=== PATIENT | male | born 1950 | race African-American/Black ===

== ENCOUNTER 2016-08-09 20:10 | Emergency (ER) | payer MEDICARE, MEDICAID ==
[~2016-08-09] VITALS: Ht 187.9 cm; Wt 73.9 kg
[~2016-08-09 20:10] MED LIST: AMOXIL500 MG PO; BACTRIM DS 8001 TA1 PO; CIPRO500 MG PO; DAILY VITE1 TA2 PO; KEFLEX500 MG PO; MIRALAX17 GM/DOSE PO; MULTI VITAMINS1 TAB PO; POLYETHYLE17 GM/Dose PO; PRILOSEC40 MG PO; REGLAN5 MG PO; THORAZINE25 MG PO
[2016-08-09 21:08] LABS: HEMATOCRIT 44.3 % (42.0-52.0); HEMOGLOBIN 14.9 g/dl (14.0-18.0); MEAN CELL VOLUME 87.4 fl (80.0-94.0); MEAN CORPUSCULAR HGB 29.4 pg (27.0-31.0); MEAN CORPUSCULAR HGB CONC 33.6 g/dl (33.0-37.0); MEAN PLATELET VOLUME 10.7 fl (9.6-12.3); PLATELET COUNT AUTOMATED 184 10*3/uL (130-400); RED BLOOD COUNT 5.07 10*6/uL (4.50-5.90); WHITE BLOOD COUNT 6.6 10*3/uL (4.8-10.8)
[2016-08-09 21:23] LABS: ALBUMIN 3.5 gm/dl (3.1-4.5); ALKALINE PHOSPHATASE 70 U/L (45-117); BILIRUBIN, TOTAL 0.6 mg/dl (0.2-1.0); BUN 16 mg/dl (7-24); CARBON DIOXIDE 25 mmol/L (21-32); CHLORIDE 106 mmol/L (98-107); EST GLOM FILT AFRICAN AMERICAN > 60 ml/min; GLUCOSE 85 mg/dL (65-99); POTASSIUM 3.7 mmol/L (3.5-5.1); SGOT/AST 24 IU/L (3-35); SGPT/ALT 39 U/L (12-78); SODIUM 141 mmol/L (136-145); TOTAL PROTEIN 7.8 gm/dL (6.4-8.2)
[2016-08-09 21:37] LABS: BASOPHIL # 0.1 10*3/uL (0-0.1); BASOPHILS 1 % (0-1); EOSINOPHIL # 0.1 10*3/uL (0-0.4); EOSINOPHILS 1 % (1-4); MONOCYTE # 1.2 10*3/uL (0.1-1.0); NEUTROPHIL # 4.3 10*3/uL (2.3-7.9); NEUTROPHILS 65 % (47-73); PLATELET SUFFICIENCY NORMAL (NORMAL); STOMATOCYTE FEW; TOTAL CELLS COUNTED 100 #CELLS
[2016-08-09 22:40] LABS: BILIRUBIN NEGATIVE (NEGATIVE); BLOOD 2+ (NEGATIVE); CLARITY SL CLOUDY (CLEAR); COLOR YELLOW (YELLOW); GLUCOSE NEGATIVE (NEGATIVE); KETONE NEGATIVE (NEGATIVE); LEUKO ESTERASE TRACE (NEGATIVE); NITRITE NEGATIVE (NEGATIVE); PROTEIN TRACE (NEGATIVE); SPECIFIC GRAVITY 1.025 (1.005-1.030)
[2016-08-09 22:46] LABS: BACTERIA 2+; URINE REFLEX COMMENT YES (NO)
[2016-08-09] MEDS ORDERED: CIPRO500 MG PO (22:50)
== END 2016-08-09 23:42 | disposition home or self-care (01) ==
LOC: ED 20:10
PROVIDERS: Physician Assistant
DX: N34.2 Other urethritis (principal); Z98.890 Other specified postprocedural states; Z79.899 Other long term (current) drug therapy

== ENCOUNTER 2017-02-19 09:12 | Inpatient (IN) | payer MEDICARE, MEDICAID ==
[~2017-02-19] VITALS: Ht 185.4 cm; Wt 74.4 kg
--- NOTE | ~2017-02-19 | PR ---
[place], [place] PROGRESS NOTE NAME: ROSALBA MYRICK UNIT #: [id number] ROOM: 402 DOCTOR: NILO HAMILTONAUGUST BIRTHDATE: [birth year] DOS: 02/22/2017 SUBJECTIVE: The patient is a 67-year-old -Ecu[place] male who is being followed for what appears to be bilateral pyelonephritis. He has enlarged prostate on CT of the abdomen and pelvis as well as changes consistent with bilateral pyelonephritis. His urinalysis has shown blood, leukocyte esterase and wbc's 51 to 100 per high powered field, which is consistent with significant pyuria. He is currently on empiric Zosyn. His original presenting urine culture on February 19 was contaminant, had multiple species. Blood cultures have been negative. Urine culture repeat on is sterile. He is alert, responsive, tolerating the antibiotics. Denies nausea, vomiting or diarrhea. Denies any pain. No cough or shortness of breath. He has been afebrile. CURRENT MEDICATIONS: Include K-Phos, Flomax, Zosyn, vitamin D, Lovenox, [place], Protonix, Zofran, milk of mag, Dulcolax, [place] and Tylenol. LABORATORY DATA: Show WBC is 5.0, platelets 210, BUN 8, creatinine 0.8. LFTs within normal limits. Cultures as reviewed above. PHYSICAL EXAMINATION: VITAL SIGNS: Shoe temperature 98.3, pulse 63, respirations 18, BP 120/61. GENERAL: A 67-year-old -Ecu[place] male, in no acute distress. HEAD, EYES, EARS, NOSE AND THROAT: Normocephalic. LUNGS: Clear to auscultation bilaterally. Respirations even and unlabored. HEART: Regular rhythm. No murmur appreciated. ABDOMEN: Soft, nontender. No CVA tenderness. EXTREMITIES: No edema. He does have significant resting tremor. SKIN: Warm, dry, free of rashes. ASSESSMENT: Presumed bilateral pyelonephritis. PLAN: Continue the empiric Zosyn and fortunately repeat urine culture is negative and the original had several species growth in it. AUGUST ALFONSO CORCORAN [place], [place] PROGRESS NOTE NAME: ROSALBA MYRICK Jayy UNIT #: [id number] ROOM: 402 DOCTOR: NILO HAMILTON,AUGUST BIRTHDATE: [birth year] JACKY MANCILLA MD CM:SADI [id number] AUGUST NILO HAMILTON 02/24/17 1300 interface
--- NOTE | ~2017-02-19 | PR ---
[place], [place] PROGRESS NOTE NAME: ROSALBA MYRICK UNIT #: [id number] ROOM: 402 DOCTOR: CHARO BRUNO,JACKY Medel BIRTHDATE: [birth year] DOS: 02/22/2017 ADDENDUM I agree with the above plans as described and follow the patient up clinically and adjust accordingly. JACKY MANCILLA MD CM:PNTRANS [id number] JACKY MANCILLA MD 02/24/17 1321 interface
[2017-02-19 09:21] VITALS: BP 120/92
[2017-02-19 10:33] LABS: BILIRUBIN NEGATIVE (NEGATIVE); BLOOD 3+ (NEGATIVE); CLARITY SL CLOUDY (CLEAR); COLOR YELLOW (YELLOW); GLUCOSE NEGATIVE (NEGATIVE); KETONE NEGATIVE (NEGATIVE); LEUKO ESTERASE 3+ (NEGATIVE); NITRITE NEGATIVE (NEGATIVE)
[2017-02-19 10:48] LABS: BACTERIA TRACE; WBC 51-100 wbc/hpf (0-5)
[2017-02-19 11:11] LABS: HEMATOCRIT 41.1 % (42.0-52.0); HEMOGLOBIN 13.7 g/dl (14.0-18.0); MEAN CELL VOLUME 88.8 fl (80.0-94.0); MEAN CORPUSCULAR HGB 29.6 pg (27.0-31.0); MEAN CORPUSCULAR HGB CONC 33.3 g/dl (33.0-37.0); MEAN PLATELET VOLUME 10.3 fl (9.6-12.3); PLATELET COUNT AUTOMATED 175 10*3/uL (130-400); RED BLOOD COUNT 4.63 10*6/uL (4.50-5.90); RED CELL DISTRI WIDTH 13.9 % (0-14.5); WHITE BLOOD COUNT 19.6 10*3/uL (4.8-10.8)
[2017-02-19 11:25] LABS: ALBUMIN 2.9 gm/dl (3.1-4.5); ALKALINE PHOSPHATASE 75 U/L (45-117); BUN 21 mg/dl (7-24); CHLORIDE 108 mmol/L (98-107); CREATININE 0.98 mg/dL (0.70-1.30); POTASSIUM 3.6 mmol/L (3.5-5.1); SGOT/AST 30 IU/L (3-35); SGPT/ALT 43 U/L (12-78); SODIUM 143 mmol/L (136-145)
[2017-02-19 11:30] LABS: PLATELET SUFFICIENCY NORMAL (NORMAL); TOTAL CELLS COUNTED 100 #CELLS
[2017-02-19 11:49] VITALS: BP 145/83
[2017-02-19 12:15] VITALS: BP 124/73
--- NOTE | 2017-02-19 12:15 | NUR ---
A 67, admitted to , under the services of RANDOLPH Hernandez DO with a diagnosis of UTI. Chief complaint is UTI. Patient arrived via stretcher from ER. Monitor applied. Initial assessment completed. Vital signs taken and recorded. RANDOLPH HERNANDEZ DO notified of admission to the unit. Orders received. See assessment for past medical history, medications and allergies. Patient and/or family oriented to unit. [facility] visitation policy reviewed. Clothing/patient valuable form completed. PHIL ARIAS
--- NOTE | 2017-02-19 15:00 | NUR ---
PT RESTING IN BED. NO DISTRESS NOTED. NO VOICED C/O, WILL MONITOR CALL LIGHT WITHIN REACH
[2017-02-19 16:00] VITALS: BP 124/75
--- NOTE | 2017-02-19 17:30 | NUR ---
PT MEDICATED WITH TYLENOL FOR C/O LEG PAIN. WILL MONITOR. CALL LIGHT WITHIN REACH
[2017-02-19 20:00] VITALS: BP 112/68
--- NOTE | 2017-02-19 20:09 | NUR ---
PT REQUESTED MEDICATION FOR PAIN OF THE RIGHT KNEE. PAIN WAS RATED AT 10 OUT OF 10. BECAUSE THE PT RECEIEVED PAIN MEDICATOIN AT 1728, IT WAS TOO CLOSE FOR THE NEXT DOSE. AN ICE BAG WAS OFFERED AND APPLIED.
--- NOTE | 2017-02-19 20:43 | NUR ---
ICE INEFFECTIVE FOR PAIN. PT STILL RATING PAIN IN THE RIGHT KNEE 10 OUT OF 10. TYLENOL WAS GIVEN.
--- NOTE | 2017-02-19 21:32 | NUR ---
PAIN MEDICATION EFFECTIVE. PT RATES PAIN AT 4 OUT OF 10.
[2017-02-20] VITALS: BP 121/73
--- NOTE | 2017-02-20 01:06 | NUR ---
24 HR chart check completed.
--- NOTE | 2017-02-20 06:06 | NUR ---
PT REQUESTED MEDICATION FOR RIGHT KNEE PAIN. PT RATED PAIN 9 OUT OF 10. TYLENOL WAS GIVEN.
[2017-02-20 07:49] LABS: BASO % 0.1 % (0.0-1.0); EOS # 0.1 10*3/uL (0.0-0.4); HEMATOCRIT 40.3 % (42.0-52.0); HEMOGLOBIN 13.6 g/dl (14.0-18.0); LYMPH # 0.8 10*3/uL (1.3-4.4); LYMPH % 8.7 % (27.0-41.0); MEAN CELL VOLUME 89.2 fl (80.0-94.0); MEAN CORPUSCULAR HGB 30.1 pg (27.0-31.0); MEAN CORPUSCULAR HGB CONC 33.7 g/dl (33.0-37.0); MEAN PLATELET VOLUME 10.7 fl (9.6-12.3); NEUT # 7.1 10*3/uL (2.3-7.9); NEUT % 78.9 % (47.0-73.0); PLATELET COUNT AUTOMATED 164 10*3/uL (130-400); RED BLOOD COUNT 4.52 10*6/uL (4.50-5.90); RED CELL DISTRI WIDTH 14.1 % (0-14.5); WHITE BLOOD COUNT 9.1 10*3/uL (4.8-10.8)
[2017-02-20 08:00] VITALS: BP 131/86
--- NOTE | 2017-02-20 08:13 | NUR ---
QUALITY CONTROL MANAGER VS. LIVES WITH GENEVA IN 1 STORY HOME. SPOKE WITH GENEVA RAJPUT, AND SHE HAS NO NEEDS AT HOME.
--- NOTE | 2017-02-20 08:13 | NUR ---
PT RESTING IN BED. NO DISTRESS NOTED. WILL MONITOR . CALL LIGHT WITHIN REACH
[2017-02-20 08:31] LABS: ALBUMIN 2.9 gm/dl (3.1-4.5); ALKALINE PHOSPHATASE 74 U/L (45-117); BUN 12 mg/dl (7-24); CHLORIDE 107 mmol/L (98-107); CHOLESTEROL 126 mg/dL (<200); CREATININE 0.81 mg/dL (0.70-1.30); FREE T4 1.09 ng/dl (0.76-1.46); HDL CHOLESTEROL 29 mg/dl (40-60); LDL CHOLESTEROL 72 mg/dL (9-159); PHOSPHOROUS 1.5 mg/dL (2.5-4.9); POTASSIUM 3.7 mmol/L (3.5-5.1); SGOT/AST 26 IU/L (3-35); SGPT/ALT 41 U/L (12-78); SODIUM 139 mmol/L (136-145); TOTAL PROTEIN 7.2 gm/dL (6.4-8.2); TRIGLYCERIDES 125 mg/dl (<150); VLDL CHOLESTEROL 25 mg/dL (6-40)
[2017-02-20 08:41] LABS: VITAMIN D, 25-HYDROXY 29.4 ng/mL (30-100)
[2017-02-20 12:00] VITALS: BP 132/71
--- NOTE | 2017-02-20 13:45 | NUR ---
DR GARCIA ANSWERING SERVICE NOTIFIED OF CONSULT
[2017-02-20 16:00] VITALS: BP 129/61
--- NOTE | 2017-02-20 16:58 | NUR ---
pt sitting up in chair, no distress noted. no voiced c/o, will monitor
[2017-02-20 17:08] LABS: BILIRUBIN NEGATIVE (NEGATIVE); BLOOD 3+ (NEGATIVE); CLARITY SL CLOUDY (CLEAR); COLOR YELLOW (YELLOW); GLUCOSE NEGATIVE (NEGATIVE); KETONE NEGATIVE (NEGATIVE); LEUKO ESTERASE 2+ (NEGATIVE); NITRITE NEGATIVE (NEGATIVE); PH 6.5 (5.0-9.0)
[2017-02-20 17:20] LABS: BACTERIA 2+; RBC 21-30 rbc/hpf (0-2); WBC 51-100 wbc/hpf (0-5)
[2017-02-20 20:00] VITALS: BP 153/72
[2017-02-21] VITALS: BP 138/75
--- NOTE | 2017-02-21 00:40 | NUR ---
24 HR chart check completed.
[2017-02-21 06:19] LABS: HEMOGLOBIN 13.6 g/dl (14.0-18.0); MEAN CELL VOLUME 87.8 fl (80.0-94.0); MEAN CORPUSCULAR HGB 29.1 pg (27.0-31.0); MEAN CORPUSCULAR HGB CONC 33.2 g/dl (33.0-37.0); MEAN PLATELET VOLUME 10.8 fl (9.6-12.3); PLATELET COUNT AUTOMATED 199 10*3/uL (130-400); RED BLOOD COUNT 4.67 10*6/uL (4.50-5.90); RED CELL DISTRI WIDTH 13.8 % (0-14.5); WHITE BLOOD COUNT 5.8 10*3/uL (4.8-10.8)
[2017-02-21 06:39] LABS: ALBUMIN 2.6 gm/dl (3.1-4.5); ALKALINE PHOSPHATASE 69 U/L (45-117); BUN 7 mg/dl (7-24); CHLORIDE 105 mmol/L (98-107); CREATININE 0.88 mg/dL (0.70-1.30); POTASSIUM 3.4 mmol/L (3.5-5.1); SGOT/AST 31 IU/L (3-35); SGPT/ALT 49 U/L (12-78); SODIUM 140 mmol/L (136-145); TOTAL PROTEIN 6.7 gm/dL (6.4-8.2)
[2017-02-21 07:10] LABS: BASOPHILS 1 % (0-1); TOTAL CELLS COUNTED 100 #CELLS
[2017-02-21 07:11] LABS: PLATELET SUFFICIENCY NORMAL (NORMAL)
[2017-02-21 08:00] VITALS: BP 135/76
--- NOTE | 2017-02-21 10:00 | NUR ---
PT SITTING UP IN CHAIR, RESTING. NO DISTRESS NOTED. PT DENIES ANY COMPLAINTS. CALL LIGHT WITHIN REACH, ENCOURAGED CALL LIGHT USE.
[2017-02-21 12:00] VITALS: BP 139/72
--- NOTE | 2017-02-21 14:22 | NUR ---
MEDICATED WITH TYLENOL PER PRN ORDER FOR COMPLAINTS OF LEFT HIP PAIN. WILL MONITOR FOR EFFECTIVENESS.
[2017-02-21 16:00] VITALS: BP 113/51
--- NOTE | 2017-02-21 16:02 | NUR ---
PT STATES TYLENOL WAS EFFECTIVE FOR HIP PAIN RELIEF. RESTING IN CHAIR. IV SITE LEAKING AT THIS TIME. NEW IV ESTABLISHED, #20G IN THE LEFT FOREARM. PT TOLERATED WELL.
--- NOTE | 2017-02-21 18:00 | NUR ---
BLADDER SCAN PERFORMED POST VOID OF 250ML OF CLEAR STRAW URINE. BLADDER SCAN DETECTING 0 ML.
[2017-02-21 20:00] VITALS: BP 135/59
--- NOTE | 2017-02-21 20:09 | NUR ---
PATIENT AWAKE IN BED AT THIS TIME. JERKING MOVEMENTS NOTED. PATIENT DENIES ANY CHEST PAIN/SOB/DISCOMFORT. NO S/S OF DISTRESS NOTED. PATIENT ALERT AND ORIENTED X3. SPEECH IS GARBLED-HX OF TRAUMATIC BRAIN INJURY. PATIENT LEFT WITH BED LOCKED IN LOW POSITION, BED ALARM INTACT, CALL LIGHT IN REACH. WILL MONITOR.
[2017-02-22] VITALS: BP 121/70
[2017-02-22 06:13] LABS: HEMATOCRIT 41.8 % (42.0-52.0); HEMOGLOBIN 14.2 g/dl (14.0-18.0); MEAN CELL VOLUME 88.2 fl (80.0-94.0); MEAN PLATELET VOLUME 10.3 fl (9.6-12.3); PLATELET COUNT AUTOMATED 210 10*3/uL (130-400); RED BLOOD COUNT 4.74 10*6/uL (4.50-5.90); RED CELL DISTRI WIDTH 13.6 % (0-14.5)
[2017-02-22 06:48] LABS: PLATELET SUFFICIENCY NORMAL (NORMAL); TOTAL CELLS COUNTED 100 #CELLS
[2017-02-22 06:49] LABS: ALBUMIN 2.9 gm/dl (3.1-4.5); BUN 8 mg/dl (7-24); CHLORIDE 105 mmol/L (98-107); PHOSPHOROUS 2.8 mg/dL (2.5-4.9); POTASSIUM 3.7 mmol/L (3.5-5.1); SGOT/AST 27 IU/L (3-35); SGPT/ALT 49 U/L (12-78); SODIUM 141 mmol/L (136-145)
[2017-02-22 06:51] LABS: ALKALINE PHOSPHATASE 66 U/L (45-117); TOTAL PROTEIN 6.9 gm/dL (6.4-8.2)
[2017-02-22 08:00] VITALS: BP 139/72
--- NOTE | 2017-02-22 08:28 | NUR ---
DR GRAMAJO IN TO SEE PT AT THIS TIME.
--- NOTE | 2017-02-22 09:00 | NUR ---
PT UP IN CHAIR, AM CARE BEING PROVIDED BY STUDENT NURSE. PT DENIES ANY COMPLAINTS, DENIES ANY DYSURIA, URINAL AT BEDSIDE. CALL LIGHT WITHIN REACH.
[2017-02-22 12:00] VITALS: BP 120/61
--- NOTE | 2017-02-22 14:25 | NUR ---
ASSISTED PT UP TO BSC AT THIS TIME FOR BM, PT VERY UNSTEADY AND JERKING UNCONTROLLABLY. PT DENIES ANY PAIN OR COMPLAINTS. ASSISTED PT BACK TO CHAIR, CALL LIGHT WITHIN REACH OF PT.
[2017-02-22 16:00] VITALS: BP 132/74
[2017-02-22 20:00] VITALS: BP 130/74
[2017-02-23] VITALS: BP 127/75
--- NOTE | 2017-02-23 06:44 | NUR ---
Rested quietly through the night. Denies pain. Resp easy and regular. Will continue to monitor.
[2017-02-23 08:09] VITALS: BP 117/74
--- NOTE | 2017-02-23 10:05 | NUR ---
SMEARER REMOVED AT THIS TIME.
[2017-02-23 12:21] VITALS: BP 108/58
--- NOTE | 2017-02-23 13:50 | NUR ---
PT FAMILY MEMBER (GUARDIAN) ATIYA MORALES ASKING ABOUT HER UNCLE'S CARE. UPDATED HER THAT HIS URINE CULTURE IS NOW COMING BACK NEGATIVE, HE IS STILL RECEIVING IV THERAPY. UPDATED HER THAT PHYSICAL THERAPY HAS BEEN ORDERED WHICH WILL SEE HIM TOMORROW, SHE ASKS TO WHY HE REQUIRES PT, UPDATED THAT THE PATIENT STATED TO THE DOCTOR'S AND MYSELF THAT HE HAS BEEN HAVING TROUBLE WALKING AND HE HAS FALLEN RECENTLY, SHE STATES THAT THIS IS HIS BASELINE AND WE SHOULDN'T BE ORDERING ANYTHING WITHOUT HER INPUT. SHE IS REQUESTING TO SPEAK WITH A DOCTOR. SPOKE WITH DR GRAMAJO. STATES SHE WILL COME SEE HER WHEN SHE CAN. UPDATED FAMILY MEMBER.
--- NOTE | 2017-02-23 14:00 | NUR ---
PT'S IV BEEPING AT THIS TIME. IN TO FLUSH IV, PT'S FAMILY MEMBER ON PHONE STATING THAT THE NURSE IS A LIAR AND WE DON'T KNOW HER UNCLE'S HISTORY. ADDRESSED FAMILY MEMEBER ATIYA, STATING THAT I DON'T BENEFIT FROM LYING ABOUT HER UNCLE'S TREATMENT, THAT I'M AWARE OF HIS TRAUMATIC BRAIN INJURY, THAT A PHYSICAL THERAPY CONSULT CAN ONLY BENEFIT HIM. THAT HE IS VERY UNSTEADY WHILE AMBULATING, AND HAD I NOT BEEN PRESENT HE WOULD HAVE FALLEN. FAMILY MEMBER PROCEEDED TO MAKE HER UNCLE STAND AND WALK, PT UNSTEADY, BUT FAMILY MEMBER STATES THIS IS HIS BASELINE AND IF HIS UTI IS GONE HE NEEDS TO COME HOME. UPDATED HER THAT I DID ADDRESS HER CONCERNS WITH THE DOCTOR AND DR GRAMAJO WOULD BE UP TO SPEAK WITH HER.
--- NOTE | 2017-02-23 15:11 | NUR ---
DR GRAMAJO IN TO SEE PT AT THIS TIME, SHE'S SPEAKING WITH PT STATING HIS NIECE STATES HE DOESN'T NEED PHYSICAL THERAPY OR WANT IT. PT REPORTED TO DR GRAMAJO THAT HE WOULD LIKE THERAPY AND TO GET STRONGER.
[2017-02-23 16:00] VITALS: BP 124/74
--- NOTE | 2017-02-23 16:00 | NUR ---
PT RESTING UP IN CHAIR, NO DISTRESS NOTED. CALL LIGHT WITHIN REACH. URINAL AT BEDSIDE.
[2017-02-23 20:00] VITALS: BP 141/85
[2017-02-24] VITALS: BP 106/60
[2017-02-24 08:00] VITALS: BP 125/70
--- NOTE | 2017-02-24 09:00 | NUR ---
space planner in to see patient, guardian Carin at bedside. Discussed order for snf placement, guardian said no, absolutely not. Received order for BSC for home, Carin did say she would like to have that and has not ordered any equipment for patient from Medicare in the past 5 years. Order for BSC given to CM.
--- NOTE | 2017-02-24 09:06 | NUR ---
Received order for home PT for patient, discussed with guardian Carin and she stated she would like him to be referred to [facility]. Will contact and fax referral.
--- NOTE | 2017-02-24 09:06 | NUR ---
GENEVA REQUESTING BSC. ORDER AND INFO FAXED TO [facility]. SPOKE WITH LOREE. THEY WILL BE IN TOUCH WITH GENEVA FOR DELIVERY DETAILS.
[2017-02-24] MEDS ORDERED: FLOMAX0.4 MG PO (11:11)
[2017-02-24] MEDS ORDERED: CIPRO500 MG PO (11:12)
--- NOTE | 2017-02-24 11:43 | NUR ---
Received order for home PT via [employer] [facility]. Patient is being discharged to home today, contacted [facility] and faxed referral.
--- NOTE | 2017-02-24 12:00 | NUR ---
Discharge instructions reviewed with patient/family. Patient receptive and verbalizes understanding. Follow-up care arranged. Written instructions given to patient/family. BARTOLO OROZCO
--- NOTE | 2017-02-24 13:11 | NUR ---
Received phone call from [facility] who contacted Carin at home regarding home PT. Carin stated she doesn't want any of their services, the patient is fine at home and she felt it was "forced" on her from the hospital staff. [facility] cancelled PT.
== END 2017-02-24 12:00 | disposition home or self-care (01) | DRG 871 ==
LOC: ED 09:12 → EDHOLD 11:33 → ED 11:33 → EDHOLD 11:35 → 4E 11:35
PROVIDERS: Nurse Practitioner Family; Registered Nurse; ADMIT Emergency Medicine
DX: A41.9 Sepsis, unspecified organism (principal); E43 Unspecified severe protein-calorie malnutrition; N12 Tubulo-interstitial nephritis, not specified as acute or chronic; N39.0 Urinary tract infection, site not specified; F79 Unspecified intellectual disabilities; E83.51 Hypocalcemia; M19.90 Unspecified osteoarthritis, unspecified site; E83.39 Other disorders of phosphorus metabolism; W19.XXXA Unspecified fall, initial encounter; N41.9 Inflammatory disease of prostate, unspecified; Z68.20 Body mass index [BMI] 20.0-20.9, adult; Y93.89 Activity, other specified; Y92.89 Other specified places as the place of occurrence of the external cause; Y99.8 Other external cause status; Z79.2 Long term (current) use of antibiotics; Z79.899 Other long term (current) drug therapy

== ENCOUNTER → 2017-08-15 | Day surgery (SDC) | payer MEDICARE, MEDICAID ==
[~2017-08-15] VITALS: Ht 154.9 cm; Wt 73.9 kg
[~2017-08-15] MED LIST changes: +ALEVE220 MG PO; +FLOMAX0.4 MG PO; +VITAMIN D5000 UNI1 PO
--- NOTE | ~2017-08-15 | PROC NOTE ---
[place], [place] PROCEDURE NOTE NAME: ROSALBA MYRICK UNIT #: [id number] ROOM: DOCTOR: ADAIR PEÑA MD BIRTHDATE: [birth year] DOS: 08/15/2017 PREOPERATIVE DIAGNOSIS: Screening examination. POSTOPERATIVE DIAGNOSIS: Screening examination. PROCEDURE: Colonoscopy. ENDOSCOPIST: Adair Peña MD MARBLE RUBBER: ALFONSO. ANESTHESIA: MAC. INDICATIONS: This is a 67-year-old -Macanese gentleman who is here for a screening colonoscopy. The procedure and its complications were explained to the patient's guardian in detail. Complications that were discussed included but were not limited to bleeding, missed lesions, colon perforation, and she agreed for him to proceed. DESCRIPTION OF PROCEDURE: After identifying the patient, the patient was brought to the endoscopy suite and placed in the left lateral position. After IV sedation was administered, a timeout procedure was called and a digital rectal exam was performed. This was within normal limits. An adult colonoscope was now introduced into the anal canal and advanced sequentially into the rectum, sigmoid colon, descending colon, transverse colon and ascending colon up to the cecum. Upon reaching the cecum, the scope was withdrawn. Total withdrawal time was approximately 7 minutes. There were no obvious mucosal lesions that could be identified. The prep was found to be optimal. Upon withdrawal, the patient was brought back to the recovery room in stable fashion. There were no complications. Based on these findings, the patient is recommended to have another colonoscopy in the next 5-10 years or sooner if he had new symptoms. These findings were discussed with the patient's guardian in the postoperative recovery room. Adair Peña MD CM:PROCNOTE:PROCEDURE NOTE [id number] ADAIR PEÑA MD
[2017-08-15 08:45] VITALS: BP 139/79
[2017-08-15 10:56] VITALS: BP 109/67
[2017-08-15 11:11] VITALS: BP 143/87
[2017-08-15 11:26] VITALS: BP 153/87
== END | disposition home or self-care (01) ==
LOC: SDC 08-12 14:00
DX: K59.00 Constipation, unspecified (principal); F41.9 Anxiety disorder, unspecified; F31.9 Bipolar disorder, unspecified; Z98.890 Other specified postprocedural states; Z79.899 Other long term (current) drug therapy

== ENCOUNTER 2020-02-02 10:09 | Emergency (ER) | payer MEDICARE, MEDICAID ==
[~2020-02-02] VITALS: Ht 177.8 cm; Wt 76.7 kg
[2020-02-02 10:58] LABS: BASO % 0.2 % (0.0-1.0); HEMATOCRIT 41.2 % (42.0-52.0); LYMPH # 1.1 10*3/uL (1.3-4.4); LYMPH % 26.5 % (27.0-41.0); MEAN CELL VOLUME 87.7 fl (80.0-94.0); MEAN CORPUSCULAR HGB 29.1 pg (27.0-31.0); MEAN CORPUSCULAR HGB CONC 33.3 g/dl (33.0-37.0); MEAN PLATELET VOLUME 11.3 fl (9.6-12.3); MONO # 0.6 10*3/uL (0.1-1.0); NEUT # 2.6 10*3/uL (2.3-7.9); NEUT % 60.1 % (47.0-73.0); PLATELET COUNT AUTOMATED 141 10*3/uL (130-400); RED CELL DISTRI WIDTH 13.2 % (0-14.5); WHITE BLOOD COUNT 4.3 10*3/uL (4.8-10.8)
[2020-02-02 11:18] LABS: ALBUMIN 2.9 gm/dl (3.1-4.5); ALKALINE PHOSPHATASE 71 U/L (45-117); BUN 18 mg/dl (7-24); CHLORIDE 109 mmol/L (98-107); CREATININE 0.92 mg/dL (0.70-1.30); POTASSIUM 3.7 mmol/L (3.5-5.1); SGOT/AST 50 IU/L (3-35); SGPT/ALT 73 U/L (12-78); SODIUM 140 mmol/L (136-145); TOTAL PROTEIN 6.3 gm/dL (6.4-8.2)
[2020-02-02 17:07] LABS: BILIRUBIN NEGATIVE; CLARITY CLEAR (CLEAR); COLOR DARK YELLOW (YELLOW); GLUCOSE NEGATIVE; KETONE NEGATIVE; SPECIFIC GRAVITY > 1.030 (1.001-1.030)
[2020-02-02 17:08] LABS: BLOOD TRACE-INTACT (NEGATIVE); LEUKO ESTERASE TRACE (NEGATIVE); NITRITE NEGATIVE (NEGATIVE)
[2020-02-02 17:14] LABS: BACTERIA 1+; MUCOUS TRACE; RBC 0-2 rbc/hpf (0-2)
[2020-02-02] MEDS ORDERED: LEVOFLOXACIN750 M2 PO (18:02)
== END 2020-02-02 19:14 | disposition home or self-care (01) ==
LOC: ED 10:09
PROVIDERS: Emergency Medicine
DX: N39.0 Urinary tract infection, site not specified (principal); R19.7 Diarrhea, unspecified; Z79.899 Other long term (current) drug therapy

== ENCOUNTER → 2022-07-17 | Outpatient (CLI) | payer OTHER ==
[~2022-07-17] MED LIST changes: +LEVOFLOXACIN750 M2 PO
[2022-07-17 18:38] LABS: BASO # 0.1 10*3/uL (0.0-0.1); BASO % 0.8 % (0.0-1.0); BILIRUBIN Negative (Negative); BLOOD 1+ (Negative); CLARITY Clear (Clear); COLOR Yellow (Yellow); EOS # 0.1 10*3/uL (0.0-0.4); EOS % 1.7 % (1.0-4.0); GLUCOSE Negative (Negative); HEMATOCRIT 49.5 % (42.0-52.0); KETONE Negative (Negative); LEUKO ESTERASE 2+ (Negative); LYMPH # 2.9 10*3/uL (1.3-4.4); MEAN CELL VOLUME 90.2 fl (80.0-94.0); MEAN CORPUSCULAR HGB 29.9 pg (27.0-31.0); MEAN CORPUSCULAR HGB CONC 33.1 g/dl (33.0-37.0); MEAN PLATELET VOLUME 10.5 fl (9.6-12.3); MONO # 0.8 10*3/uL (0.1-1.0); MONO % 10.7 % (3.0-9.0); NEUT # 3.2 10*3/uL (2.3-7.9); NEUT % 45.4 % (47.0-73.0); NITRITE Negative (Negative); PLATELET COUNT AUTOMATED 227 10*3/uL (130-400); RED BLOOD COUNT 5.49 10*6/uL (4.50-5.90); RED CELL DISTRI WIDTH 13.7 % (0-14.5); RETICULOCYTE % 1.25 % (0.50-2.50); SPECIFIC GRAVITY 1.025 (1.001-1.030); WHITE BLOOD COUNT 7.1 10*3/uL (4.8-10.8)
[2022-07-17 18:55] LABS: BACTERIA 1+; RBC 16-20 rbc/hpf (0-2); WBC 31-40 wbc/hpf (0-5)
[2022-07-17 18:58] LABS: ALKALINE PHOSPHATASE 81 U/L (46-116); BUN 15 mg/dl (9-23); CHLORIDE 108 mmol/L (98-107); CHOLESTEROL 163 mg/dL (<200); GAMMA GLUTAMYL TRANSPEPTIDASE 26 U/L (0-73); LDL CHOLESTEROL 83 mg/dL (9-159); POTASSIUM 3.6 mmol/L (3.4-5.1); SGPT/ALT 29 U/L (10-49); T3 UPTAKE 26.2 % (22.4-36.7); THYROXINE (T4) TOTAL 7.5 ug/dl (4.5-10.9); TOTAL PROTEIN 7.5 gm/dL (6.0-8.0); TRIGLYCERIDES 236 mg/dl (<150); URIC ACID 5.9 mg/dL (3.7-9.2)
== END | disposition home or self-care (01) ==
LOC: LAB 18:02
PROVIDERS: ATTEND Family Medicine
DX: E78.5 Hyperlipidemia, unspecified (principal); R74.8 Abnormal levels of other serum enzymes; E55.9 Vitamin D deficiency, unspecified; Z12.5 Encounter for screening for malignant neoplasm of prostate; R53.83 Other fatigue

== ENCOUNTER → 2022-08-13 | Outpatient (CLI) | payer OTHER ==
[~2022-08-13] MED LIST changes: +OXYBUTYNIN5 MG PO
== END | disposition home or self-care (01) ==
LOC: CT 08-08 09:00
PROVIDERS: ATTEND Family Medicine
DX: K76.0 Fatty (change of) liver, not elsewhere classified (principal); K57.32 Diverticulitis of large intestine without perforation or abscess without bleeding; N40.0 Benign prostatic hyperplasia without lower urinary tract symptoms; N28.1 Cyst of kidney, acquired

== ENCOUNTER 2022-08-14 16:31 | Emergency (ER) | payer OTHER ==
[~2022-08-14 16:31] MED LIST changes: -OXYBUTYNIN5 MG PO
[2022-08-14] MEDS ORDERED: OXYBUTYNIN5 MG PO (19:12)
== END 2022-08-14 19:29 | disposition home or self-care (01) ==
LOC: ED 16:31
DX: T83.038A Leakage of other urinary catheter, initial encounter (principal); Z79.899 Other long term (current) drug therapy; Y92.89 Other specified places as the place of occurrence of the external cause

== ENCOUNTER → 2022-08-28 | Outpatient (CLI) | payer OTHER ==
[~2022-08-28] MED LIST changes: +OXYBUTYNIN5 MG PO
== END ==
LOC: US 08-19 07:30
PROVIDERS: ATTEND Family Medicine
DX: N28.1 Cyst of kidney, acquired (principal); K80.20 Calculus of gallbladder without cholecystitis without obstruction; N40.0 Benign prostatic hyperplasia without lower urinary tract symptoms; R10.2 Pelvic and perineal pain

== ENCOUNTER 2023-03-29 07:13 | Emergency (ER) | payer OTHER ==
[~2023-03-29] VITALS: Ht 187.9 cm; Wt 76.2 kg
[2023-03-29] MEDS ORDERED: GEMFIBROZIL600 MG PO (07:32)
[2023-03-29 08:27] LABS: BASO % 0.4 % (0.0-1.0); EOS # 0.1 10*3/uL (0.0-0.4); EOS % 0.9 % (1.0-4.0); HEMATOCRIT 45.6 % (42.0-52.0); LYMPH # 1.7 10*3/uL (1.3-4.4); LYMPH % 21.6 % (27.0-41.0); MEAN CELL VOLUME 88.7 fl (80.0-94.0); MEAN CORPUSCULAR HGB 29.6 pg (27.0-31.0); MEAN CORPUSCULAR HGB CONC 33.3 g/dl (33.0-37.0); MEAN PLATELET VOLUME 9.9 fl (9.6-12.3); MONO # 0.9 10*3/uL (0.1-1.0); MONO % 11.4 % (3.0-9.0); NEUT # 5.1 10*3/uL (2.3-7.9); NEUT % 65.3 % (47.0-73.0); PLATELET COUNT AUTOMATED 225 10*3/uL (130-400); RED BLOOD COUNT 5.14 10*6/uL (4.50-5.90); RED CELL DISTRI WIDTH 13.3 % (0-14.5); WHITE BLOOD COUNT 7.8 10*3/uL (4.8-10.8)
[2023-03-29 08:49] LABS: ALKALINE PHOSPHATASE 91 U/L (46-116); BUN 13 mg/dl (9-23); CHLORIDE 107 mmol/L (98-107); POTASSIUM 3.8 mmol/L (3.4-5.1); SGPT/ALT 23 U/L (5-49); TOTAL PROTEIN 6.9 gm/dL (6.0-8.0)
[2023-03-29 10:08] LABS: BILIRUBIN Negative (Negative); BLOOD Trace-Lysed (Negative); CLARITY Clear (Clear); COLOR Yellow (Yellow); GLUCOSE Negative (Negative); KETONE Negative (Negative); LEUKO ESTERASE Trace (Negative); NITRITE Negative (Negative); PH 7.5 (4.5-8.0); UROBILINOGEN 0.2 E.U./dl (0.0-1.0)
[2023-03-29 10:23] LABS: BACTERIA 1+
[2023-03-29] MEDS ORDERED: MELOXICAM15 MG PO (10:34)
[2023-03-29] MEDS ORDERED: CIPRO500 MG PO (10:34)
== END 2023-03-29 10:40 | disposition home or self-care (01) ==
LOC: ED 07:13
PROVIDERS: Emergency Medicine
DX: S83.91XA Sprain of unspecified site of right knee, initial encounter (principal); N39.0 Urinary tract infection, site not specified; I10 Essential (primary) hypertension; E78.5 Hyperlipidemia, unspecified; Z98.890 Other specified postprocedural states; W10.8XXA Fall (on) (from) other stairs and steps, initial encounter; Y93.89 Activity, other specified; Y92.89 Other specified places as the place of occurrence of the external cause; Y99.8 Other external cause status

== ENCOUNTER → 2023-05-07 | Outpatient (CLI) | payer OTHER ==
[~2023-05-07] MED LIST changes: +GEMFIBROZIL600 MG PO; +MELOXICAM15 MG PO
[2023-05-07 12:19] LABS: BASO % 0.6 % (0.0-1.0); EOS # 0.1 10*3/uL (0.0-0.4); HEMATOCRIT 47.4 % (42.0-52.0); LYMPH # 1.5 10*3/uL (1.3-4.4); MEAN CELL VOLUME 91.7 fl (80.0-94.0); MEAN CORPUSCULAR HGB 29.2 pg (27.0-31.0); MEAN CORPUSCULAR HGB CONC 31.9 g/dl (33.0-37.0); MEAN PLATELET VOLUME 9.8 fl (9.6-12.3); MONO # 0.6 10*3/uL (0.1-1.0); MONO % 11.8 % (3.0-9.0); NEUT # 2.7 10*3/uL (2.3-7.9); NEUT % 55.4 % (47.0-73.0); PLATELET COUNT AUTOMATED 230 10*3/uL (130-400); RED BLOOD COUNT 5.17 10*6/uL (4.50-5.90); RED CELL DISTRI WIDTH 13.2 % (0-14.5); WHITE BLOOD COUNT 4.9 10*3/uL (4.8-10.8)
[2023-05-07 12:30] LABS: ACT PARTIAL THROMBO TIME 27.6 SECONDS (20.0-32.1)
[2023-05-07 12:41] LABS: ALKALINE PHOSPHATASE 93 U/L (46-116); BUN 19 mg/dl (9-23); CHLORIDE 108 mmol/L (98-107); POTASSIUM 4.1 mmol/L (3.4-5.1); SGPT/ALT 26 U/L (5-49); TOTAL PROTEIN 7.3 gm/dL (6.0-8.0)
== END | disposition home or self-care (01) ==
LOC: CARD 11:43
PROVIDERS: ATTEND Family Medicine
DX: Z01.818 Encounter for other preprocedural examination (principal); I10 Essential (primary) hypertension; D68.9 Coagulation defect, unspecified

== ENCOUNTER → 2023-09-16 | Outpatient (CLI) | payer OTHER ==
[2023-09-16 10:58] LABS: BASO % 0.2 % (0.0-1.0); EOS # 0.1 10*3/uL (0.0-0.4); EOS % 1.5 % (1.0-4.0); HEMATOCRIT 46.7 % (42.0-52.0); LYMPH # 1.5 10*3/uL (1.3-4.4); LYMPH % 22.7 % (27.0-41.0); MEAN CELL VOLUME 92.1 fl (80.0-94.0); MEAN CORPUSCULAR HGB 29.2 pg (27.0-31.0); MEAN CORPUSCULAR HGB CONC 31.7 g/dl (33.0-37.0); MEAN PLATELET VOLUME 10.5 fl (9.6-12.3); MONO # 0.9 10*3/uL (0.1-1.0); MONO % 13.7 % (3.0-9.0); NEUT % 61.6 % (47.0-73.0); PLATELET COUNT AUTOMATED 177 10*3/uL (130-400); RED BLOOD COUNT 5.07 10*6/uL (4.50-5.90); RETICULOCYTE % 0.93 % (0.50-2.50); WHITE BLOOD COUNT 6.5 10*3/uL (4.8-10.8)
[2023-09-16 11:32] LABS: ALKALINE PHOSPHATASE 95 U/L (46-116); BUN 21 mg/dl (9-23); CHLORIDE 110 mmol/L (98-107); CHOLESTEROL 159 mg/dL (<200); GAMMA GLUTAMYL TRANSPEPTIDASE 17 U/L (0-73); LDL CHOLESTEROL 94 mg/dL (9-159); POTASSIUM 3.5 mmol/L (3.4-5.1); SGPT/ALT 10 U/L (5-49); T3 UPTAKE 39.1 % (22.4-36.7); THYROXINE (T4) TOTAL 6.2 ug/dl (4.5-10.9); TOTAL PROTEIN 6.9 gm/dL (6.0-8.0); TRIGLYCERIDES 149 mg/dl (<150)
[2023-09-16 13:40] LABS: BILIRUBIN Negative (Negative); BLOOD 1+ (Negative); CLARITY Cloudy (Clear); COLOR Yellow (Yellow); GLUCOSE Negative (Negative); KETONE Negative (Negative); LEUKO ESTERASE 1+ (Negative); NITRITE Negative (Negative); PH 5.5 (4.5-8.0); SPECIFIC GRAVITY >= 1.030 (1.001-1.030); UROBILINOGEN 0.2 E.U./dl (0.0-1.0)
[2023-09-16 14:10] LABS: BACTERIA 3+; CALCIUM OXALATE CRYSTALS Trace; WBC TNTC wbc/hpf (0-5)
== END ==
LOC: LAB 10:28
PROVIDERS: ATTEND Family Medicine
DX: R79.89 Other specified abnormal findings of blood chemistry (principal); R53.83 Other fatigue; E78.5 Hyperlipidemia, unspecified; E55.9 Vitamin D deficiency, unspecified

== ENCOUNTER 2023-10-29 16:33 | Emergency (ER) | payer OTHER ==
[~2023-10-29] VITALS: Ht 185.4 cm; Wt 63.5 kg
== END 2023-10-29 19:35 | disposition home or self-care (01) ==
LOC: ED 16:33
DX: M25.532 Pain in left wrist (principal); M79.632 Pain in left forearm; M79.642 Pain in left hand; Z79.899 Other long term (current) drug therapy; Z79.2 Long term (current) use of antibiotics; W18.39XA Other fall on same level, initial encounter; Y93.89 Activity, other specified; Y92.89 Other specified places as the place of occurrence of the external cause; Y99.8 Other external cause status

== ENCOUNTER 2023-12-14 11:00 | Inpatient (IN) | payer OTHER ==
[~2023-12-14] VITALS: Ht 172.7 cm; Wt 67.6 kg
[2023-12-14 11:27] VITALS: BP 171/78
[2023-12-14] MEDS ORDERED: MELOXICAM7.5 MG PO (11:29)
[2023-12-14 12:00] LABS: BILIRUBIN Negative (Negative); BLOOD 1+ (Negative); CLARITY Clear (Clear); COLOR Yellow (Yellow); GLUCOSE Negative (Negative); KETONE Negative (Negative); LEUKO ESTERASE 2+ (Negative); NITRITE Negative (Negative)
[2023-12-14 12:03] LABS: BASO % 0.4 % (0.0-1.0); EOS % 0.6 % (1.0-4.0); HEMATOCRIT 46.2 % (42.0-52.0); LYMPH # 1.3 10*3/uL (1.3-4.4); LYMPH % 27.5 % (27.0-41.0); MEAN CELL VOLUME 91.5 fl (80.0-94.0); MEAN CORPUSCULAR HGB 29.7 pg (27.0-31.0); MEAN CORPUSCULAR HGB CONC 32.5 g/dl (33.0-37.0); MEAN PLATELET VOLUME 10.3 fl (9.6-12.3); MONO # 0.5 10*3/uL (0.1-1.0); MONO % 10.7 % (3.0-9.0); NEUT # 2.8 10*3/uL (2.3-7.9); NEUT % 60.6 % (47.0-73.0); PLATELET COUNT AUTOMATED 177 10*3/uL (130-400); RED BLOOD COUNT 5.05 10*6/uL (4.50-5.90); RED CELL DISTRI WIDTH 13.4 % (0-14.5); WHITE BLOOD COUNT 4.7 10*3/uL (4.8-10.8)
[2023-12-14 12:12] LABS: BACTERIA 1+; MUCOUS 1+; WBC 21-30 wbc/hpf (0-5)
[2023-12-14 12:22] LABS: ALKALINE PHOSPHATASE 94 U/L (46-116); BUN 15 mg/dl (9-23); CHLORIDE 110 mmol/L (98-107); LIPASE 23 U/L (12-53); POTASSIUM 3.4 mmol/L (3.4-5.1); SGPT/ALT 17 U/L (5-49); TOTAL PROTEIN 7.2 gm/dL (6.0-8.0)
[2023-12-14] MEDS ORDERED: Ceftriaxone Sodium 1 GM/10 ML SYR IV ONE (12:35)
[2023-12-14] MEDS ORDERED: ACETAMINOPHEN 325 MG TAB PO PRN (14:10)
[2023-12-14] MEDS ORDERED: BISACODYL 10 MG SUPP R PRN (14:10)
[2023-12-14] MEDS ORDERED: TEMAZEPAM 15 MG CAP PO PRN (14:10)
[2023-12-14] MEDS ORDERED: BISACODYL 5 MG TAB PO PRN (14:10)
[2023-12-14] MEDS ORDERED: ACETAMINOPHEN 650 MG SUPP R PRN (14:10)
[2023-12-14 14:38] VITALS: BP 157/82
[2023-12-14 20:00] VITALS: BP 164/75
[2023-12-15] VITALS: BP 161/77
[2023-12-15 06:42] LABS: BASO % 0.5 % (0.0-1.0); EOS # 0.2 10*3/uL (0.0-0.4); EOS % 2.4 % (1.0-4.0); HEMATOCRIT 47.6 % (42.0-52.0); LYMPH # 2.4 10*3/uL (1.3-4.4); LYMPH % 38.1 % (27.0-41.0); MEAN CELL VOLUME 90.8 fl (80.0-94.0); MEAN CORPUSCULAR HGB 30.7 pg (27.0-31.0); MEAN CORPUSCULAR HGB CONC 33.8 g/dl (33.0-37.0); MEAN PLATELET VOLUME 10.9 fl (9.6-12.3); MONO # 0.9 10*3/uL (0.1-1.0); MONO % 13.7 % (3.0-9.0); NEUT # 2.9 10*3/uL (2.3-7.9); PLATELET COUNT AUTOMATED 193 10*3/uL (130-400); RED BLOOD COUNT 5.24 10*6/uL (4.50-5.90); RED CELL DISTRI WIDTH 13.2 % (0-14.5); WHITE BLOOD COUNT 6.3 10*3/uL (4.8-10.8)
[2023-12-15 08:00] VITALS: BP 146/87
[2023-12-15 09:11] LABS: BUN 9 mg/dl (9-23)
[2023-12-15 09:14] LABS: ALKALINE PHOSPHATASE 93 U/L (46-116); CHLORIDE 104 mmol/L (98-107); CHOLESTEROL 180 mg/dL (<200); LDL CHOLESTEROL 117 mg/dL (9-159); SGPT/ALT 19 U/L (5-49); TOTAL PROTEIN 7.4 gm/dL (6.0-8.0); TRIGLYCERIDES 136 mg/dl (<150)
[2023-12-15 09:15] LABS: POTASSIUM 3.4 mmol/L (3.4-5.1)
[2023-12-15 09:24] LABS: FREE T4 1.45 ng/dl (0.89-1.76)
[2023-12-15] MEDS ORDERED: Enoxaparin Sodium 40 MG/0.4 ML SYR SC SCH (10:00)
[2023-12-15] MEDS ORDERED: LOPID600 M1 PO (11:34)
[2023-12-15 12:00] VITALS: BP 141/76
[2023-12-15] MEDS ORDERED: Ceftriaxone Sodium 1 GM,IV 1 EA in SYRINGE INFUSION 10 ML IV SCH (12:00)
[2023-12-15] MEDS ORDERED: Meloxicam 15 MG TAB PO PRN (14:10)
[2023-12-15 16:00] VITALS: BP 143/71
[2023-12-15 20:00] VITALS: BP 152/79
[2023-12-16] VITALS: BP 144/82
[2023-12-16 08:00] VITALS: BP 114/70
[2023-12-16] MEDS ORDERED: GEMFIBROZIL 600 MG TAB PO SCH (10:00)
[2023-12-16] MEDS ORDERED: Cholecalciferol 5,000 IU CAP (125 MCG) PO SCH (10:00)
[2023-12-16] MEDS ORDERED: OMNICEF300 MG PO (10:28)
[2023-12-16 12:00] VITALS: BP 141/76
== END 2023-12-16 14:20 | disposition home or self-care (01) | DRG 689 ==
LOC: ED 11:00 → 4E 12:51 → EDHOLD 12:51 → 4E 13:32 → EDHOLD 13:45 → 4E 13:48
PROVIDERS: Nurse Practitioner Family; Student in an Organized Health Care Education/Training Program; ADMIT Internal Medicine; ATTEND Internal Medicine
DX: N39.0 Urinary tract infection, site not specified (principal); G93.41 Metabolic encephalopathy; I10 Essential (primary) hypertension; R54 Age-related physical debility; R00.1 Bradycardia, unspecified; R26.89 Other abnormalities of gait and mobility; R31.9 Hematuria, unspecified; R26.81 Unsteadiness on feet; E55.9 Vitamin D deficiency, unspecified; N40.0 Benign prostatic hyperplasia without lower urinary tract symptoms; B96.20 Unspecified Escherichia coli [E. coli] as the cause of diseases classified elsewhere; Z82.49 Family history of ischemic heart disease and other diseases of the circulatory system; Z79.899 Other long term (current) drug therapy

== ENCOUNTER 2024-11-23 10:50 | Emergency (ER) | payer OTHER ==
[~2024-11-23] VITALS: Ht 187.9 cm; Wt 68.0 kg
[~2024-11-23 10:50] MED LIST changes: +LOPID600 M1 PO; +MELOXICAM7.5 MG PO; +OMNICEF300 MG PO
[2024-11-23] MEDS ORDERED: FISH OIL + D31 EACH PO (11:01)
[2024-11-23 11:30] LABS: BASO # 0.0 10*3/uL (0.0-0.1); BASO % 0.3 % (0.0-1.0); EOS # 0.0 10*3/uL (0.0-0.4); EOS % 0.0 % (1.0-4.0); MEAN CELL VOLUME 90.4 fl (80.0-94.0); MEAN CORPUSCULAR HGB 29.3 pg (27.0-31.0); MEAN PLATELET VOLUME 9.8 fl (9.6-12.3); MONO # 0.5 10*3/uL (0.1-1.0); MONO % 8.1 % (3.0-9.0); NEUT # 4.5 10*3/uL (2.3-7.9); NEUT % 78.3 % (47.0-73.0); NUCLEATED RED BLOOD CELL 0.0 % (0.0-0.0); NUCLEATED RED BLOOD CELL 0.0 10*3/uL (0.0-0.0); PLATELET COUNT AUTOMATED 197 10*3/uL (130-400); RED CELL DISTRI WIDTH 13.1 % (0-14.5)
[2024-11-23] MEDS ORDERED: IOHEXOL 300 MG/ML 100 ML VIAL IV ONE ×2 (11:30→11:55)
[2024-11-23 11:51] LABS: BILIRUBIN Negative (Negative); BLOOD Negative (Negative); CLARITY Cloudy (Clear); COLOR Yellow (Yellow); KETONE Negative (Negative); LEUKO ESTERASE 1+ (Negative); NITRITE Negative (Negative); PH 8.0 (4.5-8.0); SPECIFIC GRAVITY 1.015 (1.001-1.030); UROBILINOGEN 0.2 E.U./dl (0.0-1.0)
[2024-11-23 11:55] LABS: BUN 22 mg/dl (9-23); SGPT/ALT 19 U/L (5-49)
[2024-11-23 12:00] LABS: BACTERIA 2+
== END 2024-11-23 14:14 | disposition home or self-care (01) ==
LOC: ED 10:50
PROVIDERS: Nurse Practitioner Family
DX: R10.9 Unspecified abdominal pain (principal); R42 Dizziness and giddiness; Z79.899 Other long term (current) drug therapy; E78.5 Hyperlipidemia, unspecified; Z87.820 Personal history of traumatic brain injury

== ENCOUNTER → 2024-12-22 | Outpatient (CLI) | payer OTHER ==
[~2024-12-22] MED LIST changes: +ASPIRIN ADULT L81 M2 PO; +FISH OIL + D31 EACH PO; +FOSFOMYCIN TROME3 GM PO; +HYDROCODONE-AC1 EAC1 PO
== END | disposition home or self-care (01) ==
LOC: ORTHO 02:28
PROVIDERS: ATTEND Orthopaedic Surgery
DX: S72.142D Displaced intertrochanteric fracture of left femur, subsequent encounter for closed fracture with routine healing (principal); X58.XXXD Exposure to other specified factors, subsequent encounter

== ENCOUNTER → 2025-02-04 | Outpatient (CLI) | payer OTHER | END | disposition home or self-care (01) | LOC: ORTHO 00:12 | PROVIDERS: ATTEND Orthopaedic Surgery | DX: S72.142D Displaced intertrochanteric fracture of left femur, subsequent encounter for closed fracture with routine healing (principal); X58.XXXD Exposure to other specified factors, subsequent encounter ==

== ENCOUNTER → 2025-03-09 | Outpatient (CLI) | payer OTHER | END | disposition home or self-care (01) | LOC: ORTHO 03:13 | PROVIDERS: ATTEND Orthopaedic Surgery | DX: S72.142D Displaced intertrochanteric fracture of left femur, subsequent encounter for closed fracture with routine healing (principal); X58.XXXA Exposure to other specified factors, initial encounter; Y93.89 Activity, other specified; Y92.89 Other specified places as the place of occurrence of the external cause; Y99.8 Other external cause status ==

== ENCOUNTER → 2025-04-20 | Outpatient (CLI) | payer OTHER | END | disposition home or self-care (01) | LOC: ORTHO 01:28 | PROVIDERS: ATTEND Orthopaedic Surgery | DX: S72.142D Displaced intertrochanteric fracture of left femur, subsequent encounter for closed fracture with routine healing (principal); X58.XXXD Exposure to other specified factors, subsequent encounter ==